=== PATIENT | male | born 1960 | race Caucasian/White ===

== ENCOUNTER 2025-08-23 06:20 | Day surgery (SDC) | payer BC, SELFPAY | END 2025-08-23 10:55 | disposition home or self-care (01) | LOC: GI 06:20 | PROVIDERS: ATTENDING PHYSICIAN Internal Medicine; FAMILY PHYSICIAN Family Medicine | DX: Z12.11 Encounter for screening for malignant neoplasm of colon (principal); Z86.0100 Personal history of colon polyps, unspecified; K64.8 Other hemorrhoids; K55.20 Angiodysplasia of colon without hemorrhage | CPT/HCPCS: G0105 ==